=== PATIENT | female | born 1940 | race Caucasian/White ===

== ENCOUNTER 2019-02-15 15:12 | Inpatient (IN) | payer MEDICARE, MEDICAID ==
[2019-02-15 17:37] VITALS: BP 149/73
[2019-02-15] MEDS ORDERED: Magnesium Hydroxide (MOM) 30 mL UDC PO PRN (17:43)
[2019-02-15] MEDS ORDERED: Maalox 30 mL Cup PO PRN (17:43)
[2019-02-16] MEDS: Multivitamin Tab PO SCH (09:03)
--- NOTE | 2019-02-16 11:03 | Psychiatric Evaluation ---
DATE OF SERVICE: PSYCHIATRIC INITIAL EVALUATION AND MENTAL STATUS EXAM PATIENT'S AGE: 78. SEX: Female. PHYSICIAN: Dr. Heath. CHIEF COMPLAINT: 5150 hold for grave disability. HISTORY OF PRESENT ILLNESS: The patient is an 78-year-old female who was placed on a 5150 hold for grave disability. The patient apparently has been having difficulty performing her ADLs and also has been falling in her place and she has been calling 911 for repeated falls several times during the last month. Chart reviewed and the patient interviewed and discussed the patient's condition with the staff and reviewed records and labs. The patient is still anxious and is still in a depressed mood. The patient also has been living by herself since 2001 since her and the patient has not been feeling well since then and "lonesome." The patient has 3 children, 2 out of state and the youngest daughter is living close to her and she comes frequently to check on her. The patient lately has been feeling hopeless and has been lonely. [place] mobile [place] and she owns her space and owns her mobile home. The patient said that she has been depressed, but not suicidal. PAST PSYCHIATRIC HISTORY: The patient denies. PAST MEDICAL HISTORY: The patient has hypertension and she is seeing Dr. Bass in [place]. Otherwise, no medical problems. The patient has been falling lately. SOCIAL HISTORY: The patient is a . She has 3 children as mentioned above. The patient denies smoking cigarettes, drinking alcohol or using any street drugs. ALLERGIES: No known allergies. MENTAL STATUS EXAMINATION: The patient appears her stated age. On a wheelchair at this time because of high fall risk. Cooperative. Thought processes are mainly goal directed. The patient denies any hallucinations or delusions and she denies any thoughts of suicide or homicide. The patient is alert and oriented to time, place, person, and situation. Intact immediate, recent and remote memories. Fair insight and fair judgment. Seems to be of average intelligence based on her verbal ability. ASSESSMENT: PRIMARY DIAGNOSIS: Depressive mood disorder, unspecified. MEDICAL DIAGNOSIS: Hypertension. TREATMENT PLAN: We will monitor her behavior and her condition closely. We will start Lexapro. Also, we will work on her ineffective coping. ESTIMATED LENGTH OF STAY: 5-7 days. PATIENT'S STRENGTHS AND WEAKNESSES: The patient's strength is not clear at this time except she is in relatively fair health and cooperative with her treatment and her insight is good. Weakness is her ineffective coping. AFTER DISCHARGE PLAN: Outpatient treatment and followup. Also, the patient might need placement. [facility]# [id number]
--- NOTE | 2019-02-16 19:28 | History & Physical ---
ADMIT DATE: PATIENT IDENTIFICATION: An 78-year-old. REQUESTING PHYSICIAN: Dr. Hermes Heath. REASON: Medical management. HISTORY OF PRESENT ILLNESS: An 78-year-old female with significant past medical history of COPD, history of depression, hypertension, degenerative joint disease, history of osteoporosis and osteoporotic fracture, history of recurrent bowel obstruction, did required hospitalization at [facility] followed by [facility] where I was following her presented to Emergency Room at [facility] with being depressed and suicidal ideation. The patient was evaluated and subsequently advised to be admitted in the hospital for further treatment. The patient is sitting comfortably. PAST MEDICAL HISTORY: Remarkable for: 1. Constipation. 2. Abdominal ileus. 3. Ventral abdominal wall hernia. 4. COPD. 5. History of DJD. MEDICATIONS: Taking Tylenol, Colace, Vicodin, milk of magnesia, ____, temazepam and zinc sulfate. ALLERGIES: The patient is not allergic to medications. SOCIAL HISTORY: The patient resides at home. The patient is an ex-smoker, no alcohol or drug use. FAMILY MEDICAL HISTORY: Remarkable for hypertension and diabetes. REVIEW OF SYSTEMS: The patient currently denies any headache, blurred vision, double vision, dysphagia, odynophagia, runny nose, stuffy nose, fever, chills, cough, chest pain, shortness of breath, palpitation, dizziness, nausea, vomiting, diarrhea, dysuria, hematuria, hematochezia, melena. No history of any seizure or syncopal episode. PHYSICAL EXAMINATION: GENERAL: The patient is alert, awake, lying in the bed without any acute distress. VITAL SIGNS: Temperature 96.4, pulse is 92, respiratory rate 18, blood pressure 122/54. HEENT: Normocephalic, atraumatic. Extraocular muscles are intact. Absent upper and lower dentition noted. No oral lesion, no exudate. No sinus tenderness. NECK: Supple. No JVD, no hepatojugular reflux. No lymphadenopathy, thyromegaly or carotid bruit. HEART: Both heart sounds are regular. No S3, no S4, no murmur. CHEST AND LUNGS: Equal in expansion, no expiratory wheezing. ABDOMEN: Soft. Distention noted. Palpable ventral hernia noted. Bowel sounds are present. EXTREMITIES: No edema, no cyanosis. Diffuse osteoarthritic changes noted. NEUROLOGIC: Limited, but nonfocal. AVAILABLE DIAGNOSTIC DATA: Urinalysis remarkable +2 protein, +3 leukocyte esterase, more than 100 wbc, rbc 11-25. A chest x-ray has been reviewed. BUN and creatinine is normal. Hemoglobin is 12.3, white count of 5.1. CLINICAL IMPRESSION: 1. Psychotic disorder exacerbation. 2. Urinary tract infection. 3. Chronic obstructive pulmonary disease. 4. Degenerative joint disease. 5. Osteoporosis. 6. Ventral hernia. 7. History of bowel obstruction. 8. Chronic constipation by history. PLAN: 1. Psychiatric evaluation and management deferred to psychiatrist. 2. The patient will be taking Keflex for urinary tract infection. 3. Appropriate home medication reconciliation. 4. Symptom management. 5. Medication management. 6. General nursing care. 7. Fall precaution. 8. Nutritional support. 9. We will continue to follow this patient during the stay in the hospital. JOB# [id number]
[2019-02-16] MEDS ORDERED: Escitalopram Oxalate 5 mg Tab PO ONE (21:00)
[2019-02-17] MEDS: Multivitamin Tab PO SCH (08:18)
--- NOTE | 2019-02-17 10:58 | Progress Notes ---
DATE: SUBJECTIVE: Chart reviewed and the patient interviewed. Also discussed the patient's condition with the staff and reviewed records and labs. The patient seems to be slightly calmer today and the patient is not as agitated and not as aggressive. The patient is also slightly easier to redirect her. The patient also still has episodes of irritability and demanding with yelling, but less than before. Also, decreased verbal abuse. She still seems to be depressed and she still seems to be anxious, but no behavioral issues. ASSESSMENT: The patient is still depressed and still needs close monitoring. TREATMENT PLAN: Continue to monitor behavior and condition closely. Also, continue adjusting psychotropic medications and working on her ineffective coping and her feeling "lonely." [facility]# [id number]
--- NOTE | 2019-02-17 17:20 | Progress Notes ---
DATE: 02/17/2019 SUBJECTIVE: The patient seen and examined. The patient is sitting in the chair. The patient did have breakfast. Denies any chest pain, shortness of breath, palpitation, dizziness, nausea, vomiting, headache. PHYSICAL EXAMINATION: VITAL SIGNS: Temperature 98, pulse is 74, respiratory rate 18, blood pressure 146/70. HEENT: No facial asymmetry. Absent upper and lower dentition noted. NECK: Supple, no JVD. HEART: Both heart sounds are regular. CHEST AND LUNGS: Equal in expansion with no expiratory wheezing. ABDOMEN: Soft, large ventral hernia noted. Bowel sounds present. No palpable masses. EXTREMITIES: No edema. NEUROLOGIC: Alert, awake, follows commands. Decreased power throughout the upper and lower extremity noted. CLINICAL IMPRESSION: 1. Chronic obstructive pulmonary disease. 2. Urinary tract infection. 3. Hypertension. 4. Degenerative joint disease. 5. Osteoporosis. 6. High risk for fall. 7. Psychotic disorder. 8. History of lung cancer. PLAN: 1. The patient is to take antibiotic for UTI. 2. Psych medication. 3. Fall precaution. 4. Nutritional support. 5. General nursing care. 6. Monitor blood pressure. 7. If blood pressure starts climbing up, we will use antihypertensive medicine. 8. Avoid constipation. 9. We will continue to follow this patient during the stay in the hospital. JOB# [id number]
[2019-02-17] MEDS: Escitalopram Oxalate 5 mg Tab PO SCH (21:18)
[2019-02-18] MEDS: Multivitamin Tab PO SCH (09:03)
--- NOTE | 2019-02-18 11:36 | Progress Notes ---
DATE: SUBJECTIVE: Chart reviewed and the patient interviewed. Also discussed the patient's condition with the staff and reviewed records and labs. The patient's affect is brighter, but she is still in a depressed mood. The patient talked about her being lonely at home prior to her admission. At the same time, the patient is cooperative and compliant with taking her treatment and her medications. The patient denies any intention to harm herself or others, but still has ineffective coping. ASSESSMENT: The patient is still depressed. TREATMENT PLAN: Continue to monitor behavior and condition closely. Also, continue to work on her ineffective coping. Also, the patient has unsteady gait and might need rehabilitation and placement. [facility]# [id number]
[2019-02-18] MEDS ORDERED: Albuterol/Ipratropium Neb 3 ML AERS HHN PRN (15:55)
[2019-02-18] MEDS ORDERED: Albuterol/Ipratropium Neb 3 ML AERS HHN ONE (16:05)
[2019-02-18] MEDS: NITROGLYCERIN OINT 2% 1 INCH PACKET TP SCH (19:01)
[2019-02-18] MEDS: Escitalopram Oxalate 5 mg Tab PO SCH (21:28)
[2019-02-18] MEDS: Albuterol/Ipratropium Neb 3 ML AERS HHN SCH (21:40)
[2019-02-19] MEDS: NITROGLYCERIN OINT 2% 1 INCH PACKET TP SCH ×3 (00:55→11:19)
[2019-02-19] MEDS: Albuterol/Ipratropium Neb 3 ML AERS HHN SCH ×3 (06:29→13:38)
[2019-02-19] MEDS: Multivitamin Tab PO SCH (08:27)
[2019-02-19] MEDS ORDERED: Venelex 60gm Tube TP SCH (17:15)
--- NOTE | 2019-02-22 07:51 | Discharge Summary ---
DATE OF DISCHARGE: 02/19/2019 AGE: 78. SEX: Female. PHYSICIAN: Dr. Heath. FINAL DIAGNOSIS AND PRIMARY DIAGNOSIS: Depressive mood disorder, unspecified. REASON FOR HOSPITALIZATION: The patient was admitted to the hospital on a 5150 hold for grave disability after the patient was falling on her place and the patient was having difficulty performing her ADLs and she was placed on hold . The patient also said that she has been depressed and feeling lonely since her . HOSPITAL COURSE: The patient continued to be severely depressed. She denies any thoughts of suicide. Her daughter was much involved within her treatment and she choose [facility] to be placed there. The patient was given Lexapro in a dose of 5 mg at bedtime that helps the patient's depression. The patient was not suicidal or homicidal, and the patient was discharged to [facility]. PHYSICAL EXAMINATION: Showed no major medical problems. Also, blood workup was basically within normal. AFTER DISCHARGE PLANS: The patient discharged from the hospital with plans to continue her treatment in [facility]. EXPECTED OUTCOME AFTER DISCHARGE: Fair if the patient continued to take his medications and followup. [facility]# [id number]
== END 2019-02-19 14:45 | DRG 881 ==
LOC: GERO 15:12
PROVIDERS: ADMIT Psychiatry & Neurology Psychiatry; ATTEND Psychiatry & Neurology Psychiatry
DX: F32.9 Major depressive disorder, single episode, unspecified (principal); N39.0 Urinary tract infection, site not specified; I10 Essential (primary) hypertension; J44.9 Chronic obstructive pulmonary disease, unspecified; R26.81 Unsteadiness on feet; M19.90 Unspecified osteoarthritis, unspecified site; M81.0 Age-related osteoporosis without current pathological fracture; K43.9 Ventral hernia without obstruction or gangrene; K59.09 Other constipation; Z79.899 Other long term (current) drug therapy; Z87.891 Personal history of nicotine dependence; Z91.81 History of falling
CPT/HCPCS: 83036-90; Z7610